=== PATIENT | male | born 1985 | race Caucasian/White ===

== ENCOUNTER 2018-07-05 11:02 | Inpatient (IN) | payer OTHER ==
[~2018-07-05] VITALS: Ht 170.1 cm; Wt 60.5 kg
[~2018-07-05 11:02] MED LIST: FLOMAX0.4 MG PO; HYDROCODONE BIT1 T11 PO; LIBRIUM5 MG PO; MEDROL DOSEPAK4 MG PO; ULTRAM50 MG PO; VISTARIL50 MG PO
[2018-07-05 12:30] VITALS: BP 127/83
[2018-07-05 13:29] LABS: BILIRUBIN NEGATIVE (NEGATIVE); BLOOD NEGATIVE (NEGATIVE); CLARITY SL CLOUDY (CLEAR); COLOR YELLOW (YELLOW); GLUCOSE NEGATIVE (NEGATIVE); KETONE NEGATIVE (NEGATIVE); LEUKO ESTERASE NEGATIVE (NEGATIVE); NITRITE NEGATIVE (NEGATIVE); UROBILINOGEN 0.2 E.U./dl (0.2-1.0)
[2018-07-05 13:30] LABS: BASO # 0.1 10*3/uL (0.0-0.1); BASO % 0.8 % (0.0-1.0); EOS # 0.1 10*3/uL (0.0-0.4); EOS % 1.1 % (1.0-4.0); HEMATOCRIT 44.3 % (42.0-52.0); HEMOGLOBIN 15.3 g/dl (14.0-18.0); LYMPH # 2.3 10*3/uL (1.3-4.4); LYMPH % 26.9 % (27.0-41.0); MEAN CELL VOLUME 97.6 fl (80.0-94.0); MEAN CORPUSCULAR HGB 33.7 pg (27.0-31.0); MEAN CORPUSCULAR HGB CONC 34.5 g/dl (33.0-37.0); MONO # 0.5 10*3/uL (0.1-1.0); MONO % 6.1 % (3.0-9.0); NEUT # 5.4 10*3/uL (2.3-7.9); NEUT % 64.9 % (47.0-73.0); PLATELET COUNT AUTOMATED 475 10*3/uL (130-400); RED BLOOD COUNT 4.54 10*6/uL (4.50-5.90); RED CELL DISTRI WIDTH 11.1 % (0-14.5); WHITE BLOOD COUNT 8.4 10*3/uL (4.8-10.8)
[2018-07-05 13:35] LABS: URINE AMPHETAMINES < 1000 (1000ng/ml); URINE BARBITURATES < 200 (200ng/ml); URINE BENZODIAZEPINES < 200 (200ng/ml); URINE CANNABINOIDS (THC) < 50 (50ng/ml); URINE COCAINE < 300 (300ng/ml); URINE METHADONE < 300 (300ng/ml); URINE OPIATES < 300 (300ng/ml); URINE PHENCYCLIDINE < 25 (25ng/ml)
[2018-07-05 13:44] LABS: ALBUMIN 4.5 gm/dl (3.1-4.5); ALKALINE PHOSPHATASE 94 U/L (45-117); BUN 7 mg/dl (7-24); CHLORIDE 100 mmol/L (98-107); CREATININE 0.78 mg/dL (0.70-1.30); POTASSIUM 4.5 mmol/L (3.5-5.1); SGOT/AST 51 IU/L (3-35); SGPT/ALT 93 U/L (12-78); SODIUM 138 mmol/L (136-145); TOTAL PROTEIN 8.5 gm/dL (6.4-8.2)
[2018-07-05 13:45] LABS: ETHYL ALCOHOL < 3.0 mg/dl (<3)
[2018-07-05 16:00] VITALS: BP 136/92
[2018-07-05 20:00] VITALS: BP 137/76
[2018-07-06] VITALS (7 sets, daily range): BP systolic 112–135; BP diastolic 76–89
[2018-07-07] VITALS: BP 100/76
[2018-07-07 08:00] VITALS: BP 120/89
[2018-07-07 12:00] VITALS: BP 124/72
[2018-07-07 16:00] VITALS: BP 112/77
[2018-07-07 20:00] VITALS: BP 121/89
[2018-07-08] VITALS: BP 92/61
[2018-07-08 06:01] LABS: BASO # 0.1 10*3/uL (0.0-0.1); BASO % 0.9 % (0.0-1.0); EOS # 0.2 10*3/uL (0.0-0.4); EOS % 3.5 % (1.0-4.0); HEMATOCRIT 39.7 % (42.0-52.0); HEMOGLOBIN 13.4 g/dl (14.0-18.0); LYMPH # 2.4 10*3/uL (1.3-4.4); LYMPH % 42.9 % (27.0-41.0); MEAN CELL VOLUME 98.5 fl (80.0-94.0); MEAN CORPUSCULAR HGB 33.3 pg (27.0-31.0); MEAN CORPUSCULAR HGB CONC 33.8 g/dl (33.0-37.0); MEAN PLATELET VOLUME 8.3 fl (9.6-12.3); MONO # 0.6 10*3/uL (0.1-1.0); MONO % 10.2 % (3.0-9.0); NEUT # 2.3 10*3/uL (2.3-7.9); NEUT % 42.1 % (47.0-73.0); PLATELET COUNT AUTOMATED 397 10*3/uL (130-400); RED BLOOD COUNT 4.03 10*6/uL (4.50-5.90); RED CELL DISTRI WIDTH 11.3 % (0-14.5); WHITE BLOOD COUNT 5.5 10*3/uL (4.8-10.8)
[2018-07-08 06:07] LABS: CREATININE 0.87 mg/dL (0.70-1.30)
[2018-07-08 08:00] VITALS: BP 119/76
[2018-07-08] MEDS ORDERED: CHLORDIAZEPOXID25 MG PO (10:36)
[2018-07-08] MEDS ORDERED: ROPINIROLE HYD0.5 MG PO (10:36)
[2018-07-08] MEDS ORDERED: ZOFRAN 4 MG ED2 TAB PO (10:36)
[2018-07-08] MEDS ORDERED: METHOCARBAMOL750 M1 PO (10:36)
== END 2018-07-08 11:38 | disposition home or self-care (01) | DRG 897 ==
LOC: 4E 11:02
PROVIDERS: Family Medicine; Internal Medicine
DX: F11.23 Opioid dependence with withdrawal (principal); F13.239 Sedative, hypnotic or anxiolytic dependence with withdrawal, unspecified; F19.10 Other psychoactive substance abuse, uncomplicated; F17.210 Nicotine dependence, cigarettes, uncomplicated; Z71.6 Tobacco abuse counseling; Z82.49 Family history of ischemic heart disease and other diseases of the circulatory system; Z80.1 Family history of malignant neoplasm of trachea, bronchus and lung; Z88.1 Allergy status to other antibiotic agents

== ENCOUNTER 2018-11-11 20:46 | Inpatient (IN) | payer OTHER ==
[~2018-11-11] VITALS: Ht 170.2 cm; Wt 62.3 kg
--- NOTE | 2018-11-11 19:56 | NUR ---
33 year old MALE admitted to room # 415-1 for stabilization. Reports an addiction to IV HEROIN last used 11/08/18 prior to admission. Compliant with admission procedure. Patient denies any anxiety, but is unable to sit still, taps toes to floor continuously, looks about room, unable to focus eyes on nurse during interview. See assessment forms for additional information about patient status.
[~2018-11-11 20:46] MED LIST changes: +CHLORDIAZEPOXID25 MG PO; +METHOCARBAMOL750 M1 PO; +ROPINIROLE HYD0.5 MG PO; +ZOFRAN 4 MG ED2 TAB PO
[2018-11-11 21:56] VITALS: BP 130/90
[2018-11-11 23:48] LABS: BASO # 0.1 10*3/uL (0.0-0.1); BASO % 0.9 % (0.0-1.0); EOS # 0.2 10*3/uL (0.0-0.4); EOS % 2.3 % (1.0-4.0); HEMATOCRIT 46.3 % (42.0-52.0); HEMOGLOBIN 15.6 g/dl (14.0-18.0); LYMPH # 3.2 10*3/uL (1.3-4.4); LYMPH % 44.8 % (27.0-41.0); MEAN CELL VOLUME 98.1 fl (80.0-94.0); MEAN CORPUSCULAR HGB 33.1 pg (27.0-31.0); MEAN CORPUSCULAR HGB CONC 33.7 g/dl (33.0-37.0); MEAN PLATELET VOLUME 8.6 fl (9.6-12.3); MONO # 0.6 10*3/uL (0.1-1.0); MONO % 7.9 % (3.0-9.0); NEUT # 3.1 10*3/uL (2.3-7.9); PLATELET COUNT AUTOMATED 411 10*3/uL (130-400); RED BLOOD COUNT 4.72 10*6/uL (4.50-5.90); WHITE BLOOD COUNT 7.1 10*3/uL (4.8-10.8)
[2018-11-12] VITALS: BP 142/73
[2018-11-12 00:04] LABS: ALBUMIN 4.5 gm/dl (3.1-4.5); ALKALINE PHOSPHATASE 86 U/L (45-117); BUN 7 mg/dl (7-24); CHLORIDE 101 mmol/L (98-107); POTASSIUM 3.9 mmol/L (3.5-5.1); SGOT/AST 35 IU/L (3-35); SGPT/ALT 56 U/L (12-78); SODIUM 139 mmol/L (136-145); TOTAL PROTEIN 8.8 gm/dL (6.4-8.2)
[2018-11-12 00:12] LABS: ETHYL ALCOHOL < 3.0 mg/dl (<3)
[2018-11-12 00:13] LABS: BILIRUBIN NEGATIVE (NEGATIVE); BLOOD NEGATIVE (NEGATIVE); CLARITY CLEAR (CLEAR); COLOR YELLOW (YELLOW); GLUCOSE NEGATIVE (NEGATIVE); KETONE NEGATIVE (NEGATIVE); LEUKO ESTERASE NEGATIVE (NEGATIVE); NITRITE NEGATIVE (NEGATIVE); SPECIFIC GRAVITY 1.015 (1.005-1.030); UROBILINOGEN 0.2 E.U./dl (0.2-1.0)
[2018-11-12 00:23] LABS: URINE AMPHETAMINES < 1000 (1000ng/ml); URINE BARBITURATES > 200 (200ng/ml); URINE BENZODIAZEPINES > 200 (200ng/ml); URINE CANNABINOIDS (THC) < 50 (50ng/ml); URINE COCAINE < 300 (300ng/ml); URINE METHADONE < 300 (300ng/ml); URINE OPIATES > 300 (300ng/ml)
[2018-11-12 00:31] LABS: URINE PHENCYCLIDINE < 25 (25ng/ml)
[2018-11-12 00:47] LABS: RBC 0-2 rbc/hpf (0-2); WBC 0-2 wbc/hpf (0-5)
--- NOTE | 2018-11-12 00:54 | NUR ---
PRN ZOFRAN, VISTARIL, ROBAXIN, AND BENTYL GIVEN FOR COMPLAINTS OF NAUSEA, ANXIETY, MUSCLE/JOINT PAIN AND STOMACH CRAMPS. WILL EVALUATE EFFECTIVENESS. CALL LIGHT IS WITHIN REACH.
--- NOTE | 2018-11-12 02:04 | NUR ---
PRN MEDICATIONS APPEAR TO BE EFFECTIVE. PATIENT RESTING IN BED WITH EYES CLOSED. RESPIRATIONS ARE EASY AND REGULAR. NO DISTRESS IS NOTED. CALL LIGHT IS WITHIN REACH. WILL MONITOR.
[2018-11-12 04:00] VITALS: BP 107/67
[2018-11-12 08:00] VITALS: BP 108/88
--- NOTE | 2018-11-12 08:02 | NUR ---
Shift chart check completed.
--- NOTE | 2018-11-12 09:27 | NUR ---
PT SITTING UP IN BED, RESTING QUIETLY. NO NEEDS STATED AT THIS TIME. DENY ANY WITHDRAWL SYMPTOMS
--- NOTE | 2018-11-12 11:40 | NUR ---
PT STATES PRN MEDICATIONS EFFECTIVE AT THIS TIME GIVEN FIRST DOSE PO ATIVAN, EXPLAINED MEDICATION TO PATIENT/ NO QUESTIONS AT THIS TIME. PT STATES NO NEEDS .WILL MONITOR
[2018-11-12 12:00] VITALS: BP 127/47
[2018-11-12 16:00] VITALS: BP 127/80
[2018-11-12 20:00] VITALS: BP 117/81
[2018-11-13] VITALS: BP 114/73
[2018-11-13 08:00] VITALS: BP 122/75
--- NOTE | 2018-11-13 12:30 | NUR ---
AMBUATING IN PAGE, NO NEEDS AT THIS TIME
[2018-11-13 13:30] VITALS: BP 110/68
[2018-11-13 16:00] VITALS: BP 121/80
[2018-11-13 20:00] VITALS: BP 106/67
--- NOTE | 2018-11-13 20:00 | NUR ---
PT MEDICATED W/BENTYL FOR STOMACH CRAMPING, IMMODIUM FOR C/O DIARRHEA, MOTRIN FOR MUSCLE ACHES, AND REQUIP FOR RLS. PT RESTING QUIETLY IN BED W/LIGHTS OFF. CALL LIGHT IN REACH.
--- NOTE | 2018-11-13 21:24 | NUR ---
PT MEDICATED W/TRAZADONE TO HELP PROMOTE SLEEP. PT TEACHING GIVEN ON PRN ATIVAN TIMES IF NEEDED AND SECOND DOSE OF TRAZADONE AVAILABLE IN AN HOUR IF FIRST DOSE IS INEFFECTIVE. CALL LIGHT IN REACH.
--- NOTE | 2018-11-13 23:05 | NUR ---
24 HR chart check completed.
[2018-11-14] VITALS: BP 116/67
[2018-11-14 06:47] LABS: BASO # 0.1 10*3/uL (0.0-0.1); BASO % 1.3 % (0.0-1.0); EOS # 0.3 10*3/uL (0.0-0.4); EOS % 5.6 % (1.0-4.0); HEMATOCRIT 41.9 % (42.0-52.0); HEMOGLOBIN 14.3 g/dl (14.0-18.0); LYMPH # 2.8 10*3/uL (1.3-4.4); LYMPH % 53.4 % (27.0-41.0); MEAN CELL VOLUME 97.7 fl (80.0-94.0); MEAN CORPUSCULAR HGB 33.3 pg (27.0-31.0); MEAN CORPUSCULAR HGB CONC 34.1 g/dl (33.0-37.0); MEAN PLATELET VOLUME 8.5 fl (9.6-12.3); MONO # 0.5 10*3/uL (0.1-1.0); MONO % 10.2 % (3.0-9.0); NEUT # 1.5 10*3/uL (2.3-7.9); NEUT % 29.3 % (47.0-73.0); PLATELET COUNT AUTOMATED 334 10*3/uL (130-400); RED BLOOD COUNT 4.29 10*6/uL (4.50-5.90); RED CELL DISTRI WIDTH 11.2 % (0-14.5); WHITE BLOOD COUNT 5.2 10*3/uL (4.8-10.8)
[2018-11-14 07:09] LABS: BUN 11 mg/dl (7-24); CHLORIDE 106 mmol/L (98-107); CREATININE 0.82 mg/dL (0.70-1.30); POTASSIUM 4.3 mmol/L (3.5-5.1); SODIUM 139 mmol/L (136-145)
--- NOTE | 2018-11-14 07:20 | NUR ---
REPORT OBTAINED FROM [facility] PATIENT IS RESTINGING IN BED, EYES CLOSED. NO DISTRESS NOTED, RESP ARE ERND ON ROOM AIR. BED IS LOCKED IN LOWEST POSITION. CALL LIGHT LEF WITHIN REACH.
[2018-11-14 08:00] VITALS: BP 113/71
--- NOTE | 2018-11-14 08:06 | NUR ---
Received message to notify [facility] for services. Contacted [facility], spoke with yolanda and asked them to see patient regarding vivitrol shot.
--- NOTE | 2018-11-14 08:27 | NUR ---
PATIENT MEETS [facility]. PATIENT WANTS TO GO TO [facility] [place] FOR THE VIVITROL SHOT. [facility] STAFF WILL FOLLOW UP WITH PATIENT. JOCELYN GREGORIO B.A. 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
--- NOTE | 2018-11-14 11:10 | NUR ---
INFORMED THAT PATIENT STATAED NICOTINE PATCH WAS HARDLY WORKING AND IS REQUESTED INHALER. ASKE THIS NURSE TO PLACE ORDER PER WISHES.
[2018-11-14 16:00] VITALS: BP 133/83
[2018-11-14 20:00] VITALS: BP 135/73
--- NOTE | 2018-11-14 21:22 | NUR ---
PRN TRAZADONE GIVEN FOR SLEEPLESSNESS AND ATIVAN GIVEN FOR ANXIOUSNESS. WILL MONITOR FOR EFFECTIVENESS
--- NOTE | 2018-11-14 23:33 | NUR ---
24 HR chart check completed.
[2018-11-15] VITALS: BP 122/77
--- NOTE | 2018-11-15 00:57 | NUR ---
PATIENT RESTING IN BED WITH EYES CLOSED. RESPS EASY AND REGULAR. PREVIOUS MEDICATION SEEMS EFFECTIVE. BED IN LOWEST POSITION, CALL LIGHT IN REACH
[2018-11-15 08:00] VITALS: BP 111/74
[2018-11-15] MEDS ORDERED: LIBRIUM5 MG PO (09:10)
--- NOTE | 2018-11-15 10:15 | NUR ---
Discharge instructions reviewed with patient. Patient receptive and verbalizes understanding. Follow-up care arranged. Written instructions given to patient. PT HAS NO QUESTIONS AT THIS TIME LEONELA JARAMILLO
--- NOTE | 2018-11-15 10:28 | NUR ---
PT IS NOT IN ROOM, BELONGINGS GONE HOWEVER, PT LEFT DISCHARGE PAPERS AND RX IN ROOM. NO CELL PHONE LISTED TO CALL PATIENT.
== END 2018-11-15 10:15 | disposition home or self-care (01) | DRG 897 ==
LOC: 4E 20:46
PROVIDERS: Internal Medicine; ADMIT Internal Medicine
DX: F11.23 Opioid dependence with withdrawal (principal); F19.10 Other psychoactive substance abuse, uncomplicated; Z71.6 Tobacco abuse counseling; G25.81 Restless legs syndrome; G47.00 Insomnia, unspecified; F13.232 Sedative, hypnotic or anxiolytic dependence with withdrawal with perceptual disturbance; D75.89 Other specified diseases of blood and blood-forming organs; I10 Essential (primary) hypertension; D47.3 Essential (hemorrhagic) thrombocythemia; Z80.1 Family history of malignant neoplasm of trachea, bronchus and lung; Z82.3 Family history of stroke; Z82.49 Family history of ischemic heart disease and other diseases of the circulatory system; Z88.1 Allergy status to other antibiotic agents; Z79.899 Other long term (current) drug therapy